=== PATIENT | male | born 1975 | race Caucasian/White ===

== ENCOUNTER 2022-06-10 21:22 | Emergency (ER) | payer MEDICAID | END 2022-06-10 22:10 | disposition home or self-care (01) | LOC: LL.ED 21:22 | DX: R04.0 Epistaxis (principal); F17.210 Nicotine dependence, cigarettes, uncomplicated; Z79.02 Long term (current) use of antithrombotics/antiplatelets | CPT/HCPCS: 30901; 30903; 36415; 85025; 99283 ==